=== PATIENT | female | born 1950 | race Caucasian/White ===

== ENCOUNTER → 2020-05-12 | Outpatient (CLI) | payer MEDICARE ==
[~2020-05-12] MED LIST: DIAZ5TAB PO; FLUT10SP INH; GABA300C PO; HYDR25CA PO; NEURONTIN PO; OMEP20CA9 PO; TRIA0.2576 PO; VANC1VIA3 PO
== END | disposition home or self-care (01) ==
LOC: CFH 13:49
PROVIDERS: ATTEND Physician Assistant
DX: Z12.2 Encounter for screening for malignant neoplasm of respiratory organs (principal); F17.210 Nicotine dependence, cigarettes, uncomplicated; I77.810 Thoracic aortic ectasia
CPT/HCPCS: 71271

== ENCOUNTER 2020-08-16 13:14 | Outpatient (CLI) | payer MEDICARE ==
[~2020-08-16 13:14] MED LIST changes: -VANC1VIA3 PO; +VANC1VIA36 PO
== END 2020-08-16 23:59 | disposition home or self-care (01) ==
LOC: RAD 13:14
PROVIDERS: ATTEND Orthopaedic Surgery
DX: Z02.9 Encounter for administrative examinations, unspecified (principal)